=== PATIENT | female | born 1965 | race Caucasian/White ===

== ENCOUNTER 2023-07-14 07:53 | Day surgery (SDC) | payer BC, MEDICARE, SELFPAY ==
[2023-07-14] VITALS (15 sets, daily range): BP systolic 86–154; BP diastolic 63–84; BMI 45.8
[2023-07-14] MEDS: NSS 500 IV (08:36)
[2023-07-14] MEDS: PERIDEX 0.12% ORAL RINSE 15 ML PO (08:37)
[2023-07-14] MEDS: BACTROBAN NASAL 1 GRAM NASAL (08:37)
[2023-07-14 08:57] LABS: Hematocrit 35.5 % (37.0-47.0); Hemoglobin 12.1 g/dL (12.0-16.0); Mean Corp Hgb Conc. 34.1 g/dL (33.0-37.0); Mean Corpuscular Hgb 32.9 pg (27.0-31.0); Mean Corpuscular Volume 96.5 fL (81.0-99.0); Mean Platelet Volume 9.9 fL (7.4-10.4); Platelet Count 270 10^3/uL (130-400); Red Blood Cell Count 3.68 10^6/uL (4.20-5.40)
[2023-07-14 09:12] LABS: INR 1.02; PT 13.2 Sec (11.4-14.6)
[2023-07-14 09:13] LABS: APTT 27.8 Sec (23.4-35.0)
[2023-07-14 09:16] LABS: Blood Urea Nitrogen 44 mg/dl (7-17); Calcium 9.6 mg/dl (8.4-10.2); Carbon Dioxide 20 mmol/L (22-30); Chloride 101 mmol/L (98-107); Estimated Creatinine Clearance 24 ml/min; Glucose 120 mg/dl (70-99); Potassium 4.9 mmol/L (3.5-5.1); Sodium 137 mmol/L (135-145)
--- NOTE | 2023-07-14 10:29 | W.SUR.PREOP ---
Pre-Operative Surgical Note
-
I have examined this patient prior to the performance of the scheduled procedure.
The patient's condition is unchanged from the time of the current History and
Physical and the patient is able to undergo the scheduled procedure.
--- NOTE | 2023-07-14 11:46 | W.SUR.POST ---
Surgical Immediate Post Op
Note
Pre Op Diagnosis: ESRD
Post Op Diagnosis: ESRD
Procedure Performed: RUE brachiocephalic AV fistula creation
Primary Surgeon: Ammon
Assist: Alex COLLIER
Anesthesia: LMA
Estimated Blood Loss: 15cc
Fluids: see anesthesia flow sheet
Drains/Shunts: none
Specimens/Cultures: none
Doppler/Duplex/Angio (Y/N):Y
Complications: none
Operative Findings: +thrill
--- NOTE | 2023-07-14 12:49 | OR.RPT ---
Operative Report
Operative Report
PROCEDURE DATE: 07/14/2023
Preoperative diagnosis: End-stage renal disease on hemodialysis
Postoperative diagnosis: Same
Procedure:
1. Exploration of left distal forearm cephalic vein.
2. Left upper extremity brachiocephalic arteriovenous fistula creation
Surgeon: Ammon
Hot Wire Glass Tube Cutter: PHILIP Johnson required for all aspects of the procedure including traction/countertraction, following of suture line, assistance with closure.
Complications: None
Anesthesia: General
Indications for procedure:
End-stage renal disease on hemodialysis. Risk/benefit/alternatives of fistula creation were discussed. Patient understood all wish to proceed.
Description of procedure:
Patient was identified brought to the operating room placed on the table in supine position. After the adequate administration of anesthesia and perioperative antibiotics she was prepped and draped in the standard surgical fashion. A standard
preoperative timeout was undertaken and everybody was in agreement the plan. I had used an ultrasound to examine the forearm cephalic vein as well as the upper arm cephalic vein prior to prepping and draping. The forearm cephalic vein looks
slightly small, but potentially usable. Upper arm cephalic vein look more reasonable. However on ultrasound the radial artery at the wrist look very small. I decided to explore the vein. A longitudinal incision was made in the distal radial
aspect of the forearm that was carried through the skin subcutaneous tissue. I identified the forearm cephalic vein. It appeared to be a relatively thin-walled vein, and of relatively small size. At this point I felt that this vein would not be
usable or was not ideal. And therefore did not expose the artery or continue any further in this field.
Next, a transverse incision was made in the proximal volar aspect of the forearm just distal to the antecubital fossa. This was carried through skin subcutaneous tissue. The antecubital extension of the cephalic vein was identified and carefully
dissected away from surrounding structures and great care to avoid any injury to structures. More centrally in the field, the vein was reasonable, but as it came into the antecubital fossa, it still remains somewhat reasonable but was smaller and
more diseased appearing (likely from prior punctures etc.). Regardless, I was able to mobilize it and ligate any branches between silk ties and divided them in order to allow full mobilization. Once I had done this I then deepened my dissection in
the medial aspect of the incision site through the fascial layer. Note, there is a significant amount of subcutaneous adipose tissue making dissection slightly more challenging. The brachial artery was carefully identified and carefully dissected
away from surrounding structures take great care to avoid injury to structures. The artery itself was actually noted to be relatively small as well. I did notice this when I looked with ultrasound prior as well. However it was smaller than I
thought it would be. In addition slightly more thin-walled. I passed a vessel loop around it distally and proximally. Next I gave the patient 4000 units of intravenous heparin. I then ligated the cephalic vein distally in my field with a silk
tie and a clip. I then transected it. I distended under heparinized saline. It distended reasonably well. I marked the anterior surface under distention to avoid any kinking or twisting. The vein was suitable size but just to be sure I
sequentially ran a 2.5 mm and then 3 mm dilator through, both of which passed without any difficulty whatsoever. Next I tightened my double looped Vesseloops on the artery proximally and distally. I then made an arteriotomy with 11 blade extended
using a Hernandes scissor. I spatulated the cephalic vein and sewed an end to side anastomosis using a running 6-0 Prolene suture. Prior to completing and tying down my suture line I backbled and forebled the grand traverse artery. Next I released my bulldog
clamp on the vein and then released my Vesseloops on the artery (first releasing the inflow vessel loop, followed by the outflow vessel loop after few seconds). There was a reasonable thrill in the fistula. There was a dopplerable signals at the
wrist in the radial artery. At this point I was very satisfied. I irrigated. I achieved and confirmed full hemostasis. I then closed in layers both incision sites using 3-0 Vicryl deep dermal layer followed by 4-0 Monocryl subcuticular stitch.
Dermabond was applied. The patient tolerated the procedure well.
--- NOTE | 2023-07-14 14:07 | SUR.PHASEI ---
pacu addendum - patient received from OR with cold extremities, right arm elevated on pillow, warm blankets on. unable to clearly feel thrill or hear bruit at either incision sites, right radial pulse difficult to hear with doppler. BP low. with
wakening, BP improved, warm blankets on. TT RESOLUTION SPECIALIST for assess - RESOLUTION SPECIALIST Rand to visit - fistula deep at antecubital site. can hear pulsatile with stethescope at this site. When BP up at 140's systolic, very slight thrill at site. most of pacu stay no
thrill - pulse heard with steth at site. right arm much warmer with blankets, doppler radial pulse improved with higher BP and warm blankets.
[2023-07-14] MEDS: TYLENOL 650 MG PO (14:12)
--- NOTE | 2023-07-14 14:33 | PTCARENOTE ---
Dr Verde at pt bedside speaking to pt and pt's daughter.
== END 2023-07-14 15:00 | disposition home or self-care (01) ==
LOC: CATH 07:53
PROVIDERS: ATTENDING PHYSICIAN Surgery Vascular Surgery; FAMILY PHYSICIAN Internal Medicine
DX: N18.6 End stage renal disease (principal); Z99.2 Dependence on renal dialysis
CPT/HCPCS: 36821; 80048; 85027; 85610; 85730; 86850; 86900; 86901; 93005

== ENCOUNTER → 2023-09-01 10:57 | Outpatient (REF) | payer BC, MEDICARE, SELFPAY | LOC: RAD 10:57 | PROVIDERS: ATTENDING PHYSICIAN Physician Assistant | DX: I77.0 Arteriovenous fistula, acquired (principal) | CPT/HCPCS: 93990 ==